=== PATIENT | female | born 1990 | race Two or more races ===

== ENCOUNTER → 2020-09-25 | Outpatient (CLI) | payer MEDICAID | END | disposition home or self-care (01) | LOC: LAB 11:58 | PROVIDERS: ATTEND Specialist | DX: Z34.80 Encounter for supervision of other normal pregnancy, unspecified trimester (principal); Z3A.00 Weeks of gestation of pregnancy not specified | CPT/HCPCS: 87086 ==

== ENCOUNTER 2021-01-20 14:15 | Observation (INO) | payer MEDICAID ==
[~2021-01-20] VITALS: Ht 154.9 cm; Wt 66.2 kg
[2021-01-20] MEDS ORDERED: PREN-96 PO (14:57)
== END 2021-01-20 17:15 | disposition home or self-care (01) ==
LOC: LDRP 14:15
PROVIDERS: ADMIT Specialist; ATTEND Specialist
DX: O62.9 Abnormality of forces of labor, unspecified (principal); O42.92 Full-term premature rupture of membranes, unspecified as to length of time between rupture and onset of labor; O26.893 Other specified pregnancy related conditions, third trimester; N89.8 Other specified noninflammatory disorders of vagina; Z3A.38 38 weeks gestation of pregnancy
CPT/HCPCS: 59025; 76818; 81002; 94760; G0378

== ENCOUNTER 2021-01-29 14:00 | Inpatient (IN) | payer MEDICAID ==
[~2021-01-29] VITALS: Ht 154.9 cm; Wt 67.6 kg
[~2021-01-29 14:00] MED LIST: PREN-96 PO
[2021-01-29] MEDS ORDERED: LIDOCAINE 2%HCL (LOCAL ANESTH.) INJ 20ML MDV IJ PRN (14:15)
[2021-01-29] MEDS ORDERED: DERMOPLAST 60ML BOTTLE TOP PRN (14:15)
[2021-01-29] MEDS ORDERED: PHISODERM TOP SOLN 240ML BTL TOP PRN (14:15)
[2021-01-29] MEDS ORDERED: WITCH HAZEL-GLYCERIN PAD TOP PRN (14:15)
[2021-01-29 15:06] LABS: Basophils # (auto) 0 10 ^3/uL (0-0.2); Basophils % (auto) 0.3 % (0.0-2.0); Eosinophils # (auto) 0 10 ^3/uL (0-0.8); Eosinophils % (auto) 0.3 % (0.0-7.0); Hematocrit 34.2 % (36.0-46.0); Hemoglobin 11.8 g/dL (12.2-16.2); Lymphocytes # (auto) 0.9 10 ^3/uL (0.4-5.4); Lymphocytes % (auto) 12.2 % (10.0-50.0); Mean Corpuscular Hemoglobin 30.8 pg (28.0-32.0); Mean Corpuscular Hgb Conc. 34.5 g/dL (32.0-36.0); Mean Corpuscular Volume 89.3 fL (80.0-100.0); Monocytes # (auto) 0.5 10 ^3/uL (0-1.3); Monocytes % (auto) 6.1 % (0.0-12.0); Neutrophils # (auto) 6.3 10 ^3/uL (1.6-8.6); Neutrophils % (auto) 81.1 % (37.0-80.0); Nucleated Red Blood Cells % 0.1 %; Platelet Count (auto) 188 10^3/uL (140-450); Red Blood Cells 3.84 10^6/uL (4.0-5.20); Red Cell Distribution Width 16.4 % (11.8-14.3); White Blood Cell 7.7 10^3/uL (4.4-10.8)
[2021-01-29 15:17] LABS: Albumin 2.5 g/dL (3.4-5.0); Calcium 8.4 mg/dL (8.5-10.1); Potassium 3.8 mmol/L (3.5-5.1)
[2021-01-29 15:21] LABS: BUN/Creatinine Ratio 15.1; Bilirubin, Total 0.3 mg/dL (0.2-1.0); Total Protein 6.6 g/dL (6.4-8.2)
[2021-01-29] MEDS: LACTATED RINGER'S 1,000 ML IV SCH ×3 (15:21→20:04)
[2021-01-29 15:24] LABS: INR 0.91 (0.9-1.15); Partial Thromboplastin Time 23.6 sec (23.0-31.2)
[2021-01-29] MEDS: miSOPROStol 50 MCG per PRE-CUT 1/2 TAB PO PRN ×2 (15:35→19:56)
[2021-01-29 15:41] LABS: Urine Bacteria NONE SEEN /hpf (None Seen); Urine Blood Negative /uL (Negative); Urine Specific Gravity 1.004 (1.001-1.035); Urine WBC <1 /hpf (0 - 5)
[2021-01-29 15:54] LABS: Alcohol, Urine < 3.0 mg/dL (0-10); Amphetamine Screen, Urine NEGATIVE (NEGATIVE); Barbiturate Scree,Urine NEGATIVE (NEGATIVE); Benzodiazephine Screen, Urine NEGATIVE (NEGATIVE); Cannabinoid Screen, Urine NEGATIVE (NEGATIVE); Cocaine Screen, Urine NEGATIVE (NEGATIVE); Opiate Scree,Urine NEGATIVE (NEGATIVE); Phencyclidine Screen, Urine NEGATIVE (NEGATIVE)
[2021-01-29] MEDS ORDERED: ePHEDrine SULFATE 50 MG/ML AMP IV ONE ×2 (16:45→18:15)
[2021-01-29] MEDS ORDERED: fentaNYL CITRATE 100 MCG/2 ML VL IV ONE (16:45)
[2021-01-29] MEDS ORDERED: LIDOCAINE HCL 2 %PF INJ 10ML AMP IJ ONE ×3 (16:45→18:30)
[2021-01-29] MEDS ORDERED: NALOXONE HCL 0.4 MG/ML VIAL IV ONE ×2 (16:45→18:15)
[2021-01-29] MEDS ORDERED: ROPIVACAINE HCL 200 ML EPI SCH (16:45)
[2021-01-29] MEDS ORDERED: LACT. RINGERS/OXYTOCIN 20UNITS 500 ML IV ONE ×2 (17:15→17:45)
[2021-01-29] MEDS ORDERED: LACT. RINGERS/OXYTOCIN 20UNITS 1,000 ML IV SCH (17:15)
[2021-01-29] MEDS ORDERED: fentaNYL 400mCg/200ml W ROPIVA 200 ML EPI SCH (18:15)
[2021-01-29] MEDS ORDERED: SODIUM CHLORIDE 0.9% 500 ML IV PRN (18:15)
[2021-01-29] MEDS ORDERED: LACTATED RINGER'S 500 ML IV ONE (18:15)
[2021-01-30 07:02] VITALS: BP 105/56
[2021-01-30 11:00] VITALS: BP 99/54
[2021-01-30 15:12] VITALS: BP 119/60
[2021-01-30] MEDS: IBUPROFEN 600 MG TAB PO PRN ×2 (15:33→19:14)
[2021-01-30 19:00] VITALS: BP 106/58
[2021-01-30 23:26] VITALS: BP 99/56
[2021-01-31] MEDS: IBUPROFEN 600 MG TAB PO PRN ×2 (02:07→12:54)
[2021-01-31 03:00] VITALS: BP 97/52
[2021-01-31 07:00] VITALS: BP 97/53
[2021-01-31 11:00] VITALS: BP 102/58
[2021-01-31 15:12] VITALS: BP 98/57
[2021-01-31] MEDS ORDERED: MEASLES, MUMPS & RUBELLA VAC(MMRII) 0.5ML SC ONE (16:30)
== END 2021-01-31 17:55 | disposition home or self-care (01) | DRG 560 ==
LOC: LDRP 14:00
PROVIDERS: ADMIT Specialist; ATTEND Specialist
PROC: 10E0XZZ Delivery of Products of Conception, External Approach (ICD-10-PCS; principal; 2021-01-29)
PROC: 3E0R3BZ Introduction of Anesthetic Agent into Spinal Canal, Percutaneous Approach (ICD-10-PCS; 2021-01-29)
PROC: 00HU33Z Insertion of Infusion Device into Spinal Canal, Percutaneous Approach (ICD-10-PCS; 2021-01-29)
PROC: 3E0D7GC Introduction of Other Therapeutic Substance into Mouth and Pharynx, Via Natural or Artificial Opening (ICD-10-PCS; 2021-01-29)
DX: O80 Encounter for full-term uncomplicated delivery (principal); Z20.822 Contact with and (suspected) exposure to COVID-19; Z37.0 Single live birth; Z3A.40 40 weeks gestation of pregnancy
CPT/HCPCS: 36415; 59025; 59409; 62282; 80053; 80307; 81001; 81002; 85025; 85610; 85730; 86592; 86850; 86900; 86901; 87426; 94762; 96360; 96361; 96365; 96366; 96372; G0378; J2590